=== PATIENT | male | born 1970 | race Caucasian/White ===

== ENCOUNTER 2018-04-18 15:48 | Emergency (ER) | payer OTHER ==
[~2018-04-18] VITALS: Ht 185.4 cm; Wt 72.7 kg
[2018-04-18 16:02] VITALS: Ht 185.4 cm; Wt 72.7 kg
[2018-04-18] MEDS ORDERED: LISINOPRIL10 MG PO (16:03)
[2018-04-18 16:28] LABS: BASOPHILS 0.5 % (0-2); EOSINOPHILS 1.4 % (0-7); HEMOGLOBIN 16.9 g/dL (13.5-17.5); IMMATURE GRANULOCYTES 0.2 % (0-5); LYMPHOCYTES 25.3 % (15-50); MCH 31.7 pg (26.0-34.0); MCV 88.2 fL (80.0-100.0); MEAN PLATELET VOLUME 9.5 fL (7.4-10.4); MONOCYTES 6.5 % (2-11); NEUTROPHILS 66.1 % (40-80); PLATELET COUNT 258 10x3/uL (130-400); RBC 5.33 10x6/uL (4.20-6.10); RDW 12.5 % (11.5-14.5); WBC 8.7 10x3/uL (4.8-10.8)
[2018-04-18 16:37] LABS: APTT 27.4 SECONDS (22.8-39.4); INR 1.06 (0.85-1.17); PROTIME 13.3 SECONDS (11.6-15.0)
[2018-04-18 16:39] LABS: D-DIMER-QUANTITATIVE < 0.27 ug/mLFEU (0.20-0.54)
[2018-04-18 16:44] LABS: ALBUMIN 4.7 g/dL (3.4-5.0); ALKALINE PHOSPHATASE 55 U/L (46-116); ALT (SGPT) 25 U/L (10-68); BILIRUBIN - TOTAL 0.92 mg/dL (0.2-1.3); CALC OSMOLALITY 278 mosm/kg (275-300); CALCIUM 9.8 mg/dL (8.5-10.1); CARBON DIOXIDE 26.7 mmol/L (21.0-32.0); CHLORIDE - SERUM 100 mmol/L (98-107); CREATININE - SERUM 0.9 mg/dL (0.6-1.3); GLUCOSE 116 mg/dL (74-106); POTASSIUM - SERUM 3.5 mmol/L (3.5-5.1); PROTEIN - SERUM 8.7 g/dL (6.4-8.2); SODIUM 139 mmol/L (136-145); UREA NITROGEN 12 mg/dL (7-18); eGFR NON AFRICAN AMERICAN > 90 mL/min (90-120)
[2018-04-18 16:53] LABS: CKMB 0.5 U/L (0.0-3.6); LIPASE 152 U/L (73-393); TROPONIN-I < 0.017 ng/mL (0.000-0.060)
[2018-04-18] MEDS ORDERED: PROTONIX40 MG PO (17:33)
[2018-04-18 17:48] VITALS: BP 141/81
== END 2018-04-18 17:49 | disposition home or self-care (01) ==
LOC: D.ER 15:48
PROVIDERS: Family Medicine
DX: K21.9 Gastro-esophageal reflux disease without esophagitis (principal)

== ENCOUNTER 2018-05-02 00:03 | Emergency (ER) | payer OTHER ==
[~2018-05-02] VITALS: Ht 185.4 cm; Wt 72.7 kg
[~2018-05-02 00:03] MED LIST: LISINOPRIL10 MG PO; PROTONIX40 MG PO
[2018-05-02 00:13] VITALS: Ht 185.4 cm; Wt 72.7 kg
[2018-05-02] MEDS ORDERED: COLCRYS0.6 MG PO (00:22)
[2018-05-02] MEDS ORDERED: INDOCIN25 MG PO (00:22)
[2018-05-02 01:50] VITALS: BP 133/79
== END 2018-05-02 01:50 | disposition home or self-care (01) ==
LOC: D.ER 00:03
DX: M10.072 Idiopathic gout, left ankle and foot (principal); I10 Essential (primary) hypertension; K21.9 Gastro-esophageal reflux disease without esophagitis

== ENCOUNTER → 2018-06-04 14:30 | Outpatient (CLI) | payer OTHER ==
[2018-05-02 00:13] VITALS: BMI 21.1
[~2018-06-04 14:30] MED LIST changes: +COLCRYS0.6 MG PO; +INDOCIN25 MG PO
== END | disposition home or self-care (01) ==
LOC: D.HCCARDIO 04-30 15:00
PROVIDERS: ATTEND Internal Medicine Cardiovascular Disease
DX: I20.9 Angina pectoris, unspecified (principal)

== ENCOUNTER 2018-06-15 11:56 | Outpatient (CLI) | payer OTHER ==
[~2018-06-15] VITALS: Ht 185.4 cm; Wt 72.7 kg
--- NOTE | ~2018-06-15 | HEMODYNAMI ---
PATIENT:ROBINSON SANCHES MEDICAL RECORD: [id number] : 72 LOCATION:[facility] ADMISSION DATE: 06/15/18 Generatedon:06/15/201815:11 Patient name: ROBINSON SANCHES Patient #: [id number] SSN: D OB: 1970 Date of study: 06/15/2018 Page: Of Hemodynamic Procedure Report Patient Data Patient Demographics Procedure consent was obtained First Name: ROBINSON Gender: Male Last Name: VERÓNICA : 1970 Middle Initial: BRENNA Age: 47 year(s) Patient #: [id number] Race: Unknown Additional ID: [id number] Contact details Address: [address] [place] [address] State: [place] City: [facility] Zip code: [address] Past Medical History Allergies Allergen Reaction Date Comments Reported Other allergy 06/15/2018 RED MEAT Admission Admission Data Admission Date: 06/15/2018 Admission Time: 11:56 Height (in.): 73 BSA: 1.96 (m2) Height (cm.): 185.42 BMI: 21.15 (kg/m2) Weight (lbs.): 160.32 Weight (kg.): 72.72 Lab Results Lab Result Date: 06/15/2018 Lab Result Time: 0:00 Biochemistry Name Units Result Min Max BUN mg/dl 8 --(*---)-- 7 18 Creatinine mg/dl 0.9 --(-*--)-- 0.6 1.3 CBC Name Units Result Min Max Hematocrit % 43.8 --(*---)-- 42 54 Hemoglobin g/dl 15.7 --(--*-)-- 13.5 17.5 Procedure Procedure Types Cath Procedure Diagnostic Procedure [facility] w/Coronaries Sedation Charges Moderate Sedation up to 15 minutes Procedure Description Procedure Date Procedure Date: 06/15/2018 Procedure Start Time: 14:59 Procedure End Time: 15:09 Procedure Staff Name Function Reginaldo Berry MD Performing Physician Mary Damon RT Monitor Keisha Serrato RN Nurse Diane Luna RT Scrub Procedure Data Cath Procedure Fluoroscopy Diagnostic fluoroscopy Total fluoroscopy Time: 2.3 time: 2.3 min min Diagnostic fluoroscopy Total fluoroscopy dose: 314 dose: 314 mGy mGy Contrast Material Contrast Material Type Amount (ml) Isovue 300 62 Entry Location Entry Primary Successful Side Size Upsize Upsize Entry Closure Drew ccessful Closure Location (Fr) 1 (Fr) 2 (Fr) Remarks Device Remarks Radial Right 6 Fr Mechanical artery Short Compression Estimated blood loss: 5 ml Diagnostic catheters Device Type Used For End Catheter Placement DIAGNOSTIC Jerrell 110cm Procedure 5Fr catheter ([id number]) Procedure Complications No complications Procedure Medications Medication Administration Route Dosage Oxygen etCO2 Nasal cannula 2 l/min Heparin Flush Bag added to field 2 bags (1000units/500ml NS) 0.9% NaCl I.V. 100 ml/hr Lidocaine 2% added to field 20 Radial Cocktail added to field 1 syringe (Verapomil 2mg/Nitro 400mcg/Heparin 1500units) Versed I.V. 2 mg Fentanyl I.V. 50 mcg Versed I.V. 2 mg Fentanyl I.V. 50 mcg Versed I.V. 2 mg Fentanyl I.V. 50 mcg Hemodynamics Rest BSA: 1.96 (m2) HGB: 15.7 (g/dl) O2 Consumption: Estimated: 245.41 (ml/min) O2 Co nsumption indexed: Estimated:125.21 (ml/min/m) Heart Rate: 82 (bpm) Pressure Samples Time Site Value (mmHg) Purpose Heart Use Rate(bpm) 15:02 LV 107/-15,2 EDP 125 15:02 LV 165/-28,1 Snapshot 105 15:03 AO 84/51(61) Pullback 104 15:03 LV 123/-17,-2 Pullback 104 Gradients Valve Time Site 1 Site 2 Mean SEP/DFP Peak To Heart Use (mmHg) (sec/min) Peak Rate (mmHg) (bpm) Aortic 15:03 LV AO 15 22 39 104 123/-17,-2 84/51(61) Calculations Valve P-P Mean Valve Index Valve Source Name Gradient Area Flow (cm2) Aortic 39 15 39 15 Snapshots Pre Cath Intra NCS Post Cath Vital Signs Time Heart Resp SPO2 etCO2 NIBP (mmHg) Rhythm Pain Sedation Rate (ipm) (%) (mmHg) Status Level (bpm) 14:42:35 101 16 100 0 131/90(104) NSR 0 (11) 10(A) , No pain 14:46:49 81 15 99 29.7 125/71(95) NSR 0 (11) 10(A) , No pain 14:50:59 85 11 98 23 111/72(92) NSR 0 (11) 10(A) , No pain 14:55:04 83 16 96 35.7 117/78(91) NSR 0 (11) 10(A) , No pain 14:59:16 88 14 96 38.7 118/70(84) NSR 0 (11) 10(A) , No pain 15:03:28 109 13 96 35.7 102/57(80) NSR 0 (11) 9(A) , No pain 15:07:36 105 13 96 40.9 104/59(77) NSR 0 (11) 10(A) , No pain Medications Time Medication Route Dose Verified Delivered Reason Notes E ffectiveness by by 14:39:00 Oxygen etCO2 2 l/min Buffie Reginaldo Per Nasal Ama Berry MD physician cannula 14:39:09 Heparin Flush added 2 bags Buffie Reginaldo used for Bag to Ama Berry MD procedure (1000units/500ml field NS) 14:39:18 0.9% NaCl I.V. 100 Buffie Reginaldo Per ml/hr Ama Berry MD physician 14:39:26 Lidocaine 2% added 20ml Buffie Reginaldo for local to vial Ama Berry MD anesthetic field 14:39:48 Radial Cocktail added 1 Buffie Reginaldo used for (Verapomil to syringe Ama Berry MD procedure 2mg/Nitro field 400mcg/Heparin 1500units) 14:49:09 Versed I.V. 2 mg Buffie Buffie for Serrato RN Serrato RN sedation 14:49:16 Fentanyl I.V. 50 mcg Buffie Buffie for Serrato RN Serrato RN sedation 14:54:29 Versed I.V. 2 mg Buffie Buffie for Serrato RN Serrato RN sedation 14:54:32 Fentanyl I.V. 50 mcg Buffie Buffie for Serrato RN Serrato RN sedation 15:02:20 Versed I.V. 2 mg Buffie Buffie for Serrato RN Serrato RN sedation 15:02:27 Fentanyl I.V. 50 mcg Keisha Valdes for Ama Serrato RN sedation Procedure Log Time Note 14:34:01 Keisha Serrato RN sent for patient. Start room use. 14:34:02 Time tracking: Regular hours (M-F 7:00 - 5:00) 14:34:06 Plan of Care:Hemodynamics will remain stable., Cardiac rhythm will remain stable., Comfort level will be maintained., Respiratory function will remain adequate., Patient/ family verbilizes understanding of procedure., Procedure tolerated without complication., Recovers from procedure without complications.. 14:36:37 Signed procedure consent form obtained from patient. 14:36:44 Patient received from Pre/Post Procedure Room to CCL 1 Alert and oriented. Tansferred to table in Supine position. 14:36:45 Warm blankets applied, and ree hugger turned on for patient comfort. 14:36:46 Correct patient and procedure confirmed by team. 14:36:46 ECG and BP/O2 sat monitors applied to patient. 14:39:00 Oxygen 2 l/min etCO2 Nasal cannula was administered by Reginaldo Berry MD; Per physician; 14:39:09 Heparin Flush Bag (1000units/500ml NS) 2 bags added to field was administered by Reginaldo Berry MD; used for procedure; 14:39:18 0.9% NaCl 100 ml/hr I.V. was administered by Reginaldo Berry MD; Per physician; 14:39:26 Lidocaine 2% 20ml vial added to field was administered by Reginaldo Berry MD; for local anesthetic; 14:39:48 Radial Cocktail (Verapomil 2mg/Nitro 400mcg/Heparin 1500units) 1 syringe added to field was administered by Reginaldo Berry MD; used for procedure; 14:41:37 Vital chart was started 14:45:08 Baseline sample Acquired. 14:45:12 Rhythm: sinus rhythm 14:45:13 Full Disclosure recording started 14:45:14 Pre-procedure instructions explained to patient. 14:45:14 Pre-op teaching completed and patient verbalized understanding. 14:45:15 Family in patients room. 14:45:16 Patient NPO since Midnight. 14:47:24 H&P Date Dictated: 06/11/2018 Within 30 days and on chart., H&P Addendum completed by physician on day of procedure. (MUST COMPLETE FOR ALL OUTPATIENTS). 14:47:42 Patient allergic to Other allergyRED MEAT 14:47:45 Is patient on blood thinner?No 14:47:46 Patient diabetic? No. 14:47:50 Previous problem with sedation/anesthesia? No ? 14:47:51 Snore? Yes 14:47:52 Sleep apnea? No 14:47:53 Deviated septum? N/A 14:47:54 Opens mouth fully? Yes 14:47:55 Sticks out tongue? Yes 14:47:58 Airway obstruction? No ? 14:47:59 Dentures? No ? 14:48:01 Modified Vikram's test Ulnar < 7 seconds 14:48:03 Patient pain scale 0/10 ?. 14:48:06 IV patent on arrival in left hand with 0.9% NaCl at [facility]. 14:48:42 Lab Result : Creatinine 0.9 mg/dl 14:48:42 Lab Result : BUN 8 mg/dl 14:48:42 Lab Result : Hemoglobin 15.7 g/dl 14:48:42 Lab Result : Hematocrit 43.8 % 14:48:45 Lab results completed and on chart. 14:48:48 Right Radial & Right Groin area was prepped with chlora-prep and draped in sterile fashion 14:48:49 Alarms reviewed by R. N. 14:48:49 Sharps counted by scrub and verified by R.N. 14:48:51 --------ALL STOP TIME OUT------ 14:48:51 Final Timeout: patient, procedure, and site verified with staff and physician. All members of the team are in agreement. 14:48:52 Right Radial & Right Groin site verified by team. 14:48:55 Maximum allowable Isovue 300 dose 300ml. Physician notified. (300ml for normal creatinines. For patients with creatinine of 1.7 or higher multiply weight(kg) x 5 divided by creatinine.) 14:48:59 Fire Safety Assessment: A--An alcohol-based skin anteseptic being used preoperatively., C--Open oxygen or nitrous oxide is being used., D--An ESU, laser, or fiber-optic light is being used. 14:49:01 Physical assessment completed. ASA score P 2 - A patient with mild systemic disease as per Reginaldo Berry MD. 14:49:05 Sedation plan: IV Moderate Sedation Medication:Versed, Fentanyl 14:49:09 Versed 2 mg I.V. was administered by Keisha Serrato RN; for sedation; 14:49:16 Fentanyl 50 mcg I.V. was administered by Keisha Serrato RN; for sedation; 14:51:02 Use device set Radial Dx or PCI 14:51:03 ACIST Syringe (97289) opened to sterile field. 14:51:05 Bag Decanter (2002S) opened to sterile field. 14:51:07 ACIST Hand Control (29523) opened to sterile field. 14:51:07 ACIST Manifold (38665) opened to sterile field. 14:51:08 Tegaderm 4 x 4 (1626W) opened to sterile field. 14:51:11 Medline Cath Pack ([id number]) opened to sterile field. 14:51:12 DIAGNOSTIC WIRE .035 260cm J wire (165737) opened to sterile field. 14:51:12 MBrace Wrist Support ([id number]) opened to sterile field. 14:51:13 SHEATH 6FR Slender (80-1580) opened to sterile field. 14:51:15 NEEDLE Cook 21G 4cm Radial ([id number]) opened to sterile field. 14:51:26 Patient Height : 73 inches 14:51:37 Patient Weight : 160.32 lbs 14:54:29 Versed 2 mg I.V. was administered by Keisha Serrato RN; for sedation; 14:54:32 Fentanyl 50 mcg I.V. was administered by Keisha Serrato RN; for sedation; 14:58:21 Procedure started. 14:58:24 Zero performed for pressure channel P1 14:58:51 Zero performed for pressure channel P1 14:59:03 Local anesthetic to right radial artery with Lidocaine 2% by Reginaldo Berry MD.INITIAL ACCESS ONLY 15:00:29 A 6 Fr Short sheath was inserted into the Right Radial artery 15:01:08 A DIAGNOSTIC Jerrell 110cm 5Fr catheter (281932) was advanced over the wire and used for Procedure. 15:01:32 LV gram done using SMITH 15:01:35 Injector settings: Ml/sec: 7, Volume: 15, 15:02:20 Versed 2 mg I.V. was administered by Keisha Serrato RN; for sedation; 15:02:27 Fentanyl 50 mcg I.V. was administered by Keisha Serrato RN; for sedation; 15:02:44 LV hemodynamics recorded. 15:02:55 EF : 55 % 15:03:51 RCA angiography performed. 15:04:54 LCA angiography performed. 15:06:01 Catheter removed. 15:06:23 TR BAND Standard ([id number]) opened to sterile field. 15:06:31 Procedure ended.(Physican Out) 15::59 Fluoroscopy time 02.30 minutes. 15:07:04 Fluoroscopy dose: 314 mGy 15:07:04 Flurop Dose total: 314 15:07:07 Contrast amount:Isovue 300 62ml. 15:07:15 Sheath removed intact; hemostasis achieved with Mechanical Compression to the Right Radial artery. 15:07:22 TR band inflated with 11cc of air. 15:07:38 Post-procedure physical assessment completed. ASA score P 2 - A patient with mild systemic disease as per Reginaldo Berry MD. 15:07:41 Post procedure rhythm: sinus tachycardia 15:07:44 Estimated blood loss: 5 ml 15:07:46 Post procedure instruction explained to patient.Patient verbalizes understanding. 15:07:46 Patient needs reinforcement of post procedure teaching. 15:08:05 Procedure type changed to Cath procedure, Diagnostic procedure, LHC, LHC w/Coronaries, Sedation Charges, Moderate Sedation up to 15 minutes 15:08:48 Procedure and supply charges have been captured, reviewed, submitted and are correct. 15:08:51 Procedure Complication : No complications 15:09:48 Vital chart was stopped 15:09:49 See physician's report for complete and final results. 15:09:50 Report given to Pre/Post Procedure Room. 15:09:52 Patient transfered to Pre/Post Procedure Room with Bed. 15:09:55 Procedure ended. 15:09:55 Full Disclosure recording stopped 15::59 End room use (Document Last) Device Usage Item Name Manufacture Quantity Catalog Hospital Part Current Minimal Lot# / Number Charge Number Stock Stock Serial# Code ACIST Acist 1 24763 431016 247123 307987 20 Syringe fluIT Biosystems (00261) joblocal Inc Bag Microtek 1 577362 14905 076474 5 DecTAGSYS [employer] () ACIST Hand Acist 1 31101 300616 053593 055404 5 Control Medical (10233) Systems Inc ACIST Acist 1 62552 553877 460294 777947 5 Manifold Medical (96270) Systems Inc Tegaderm 4 3M 1 1626W 674514 749969 673122 5 x 4 (1626W) Medline Medline 1 [id number] 364327 35558 683499 5 Cath Pack ([id number]) DIAGNOSTIC St Jh 1 316629 768275 261068 057087 30 WIRE .035 260cm J wire (968594) MBrace Advanced 1 140-0250-00 321149 02536 574481 5 Wrist Vascular Support Dynamics ([id number]) SHEATH 6FR Terumo 1 [id number] 545256 441593 407821 5 Slender (80-1060) NEEDLE Cook [facility] 1 [id number] 912334 261518 997123 5 21G 4cm Radial (Y39274) DIAGNOSTIC Terumo 1 40-5898 005249 842437 382407 5 Jerrell 110cm 5Fr catheter (442073) TR BAND Terumo 1 [id number] 744598 739925 029373 40 Standard ([id number]) Signature Audit Gilbert Stage Time Signature Unsigned Intra-Procedure 06/15/2018 Mary Damon 3:10:56 PM RT(R) Signatures Monitor : Mary Damon Signature : RT Date : Time : [facility] [address] [place] [address]
[2018-06-15 12:20] VITALS: BP 135/87; Ht 185.4 cm; Wt 72.7 kg
[2018-06-15 12:23] LABS: BASOPHILS 0.7 % (0-2); EOSINOPHILS 4.4 % (0-7); HEMATOCRIT 43.8 % (42.0-54.0); HEMOGLOBIN 15.7 g/dL (13.5-17.5); IMMATURE GRANULOCYTES 0.2 % (0-5); LYMPHOCYTES 31.4 % (15-50); MCH 30.6 pg (26.0-34.0); MCHC 35.8 g/dL (31.0-37.0); MCV 85.4 fL (80.0-100.0); MEAN PLATELET VOLUME 9.4 fL (7.4-10.4); MONOCYTES 5.3 % (2-11); PLATELET COUNT 269 10x3/uL (130-400); RBC 5.13 10x6/uL (4.20-6.10); WBC 6.1 10x3/uL (4.8-10.8)
[2018-06-15 12:37] LABS: CALC OSMOLALITY 277 mosm/kg (275-300); CALCIUM 9.6 mg/dL (8.5-10.1); CARBON DIOXIDE 28.8 mmol/L (21.0-32.0); CHLORIDE - SERUM 101 mmol/L (98-107); CREATININE - SERUM 0.9 mg/dL (0.6-1.3); GLUCOSE 111 mg/dL (74-106); POTASSIUM - SERUM 3.3 mmol/L (3.5-5.1); SODIUM 140 mmol/L (136-145); UREA NITROGEN 8 mg/dL (7-18); eGFR NON AFRICAN AMERICAN > 90 mL/min (90-120)
--- NOTE | 2018-06-15 15:26 | NUR ---
RECIEVED TO ROOM VIA STRETCHER FROM JOINER APPRENTICE WITH TR BAND TO R/WRIST CDI NO BLEEDING OR HEMATOMA NOTED. HR 97 BP 109/74 CHEST PAIN IS DENIED
--- NOTE | 2018-06-15 15:38 | NUR ---
REPOSITIONED TO HOB UP 30 FOR COMFORT. SANDWICH AND SODA TO BEDSIDE TR BAND REMAINS CDI WITH NO BLEEDING OR HEMATOMA NOTED. HR 115 BP 19/74 CHEST PAIN IS DENIED
--- NOTE | 2018-06-15 16:00 | NUR ---
PT SITTING UP, TOLERATED SANDWICH AND DRINK W/O NAUSEA. TR BAND AND IMMOBILIZER IN PLACE, DRESSING REMAINS CDI NO BLEEDING OR HEMATOMA NOTED. CAP REFILL BRISK. R ARM PINK AND WARM. CALL LIGHT IN REACH, AT BEDSIDE.
--- NOTE | 2018-06-15 16:13 | NUR ---
PT DOING WELL, SITTING UP VISITING W . TOLERATED SANDWICH AND DRINK W/O NAUSEA. TR BAND IN PLACE, DRESSING CDI NO BLEEDING OR HEMATOMA NOTED. VSS, CALL LIGHT IN REACH
--- NOTE | 2018-06-15 16:29 | NUR ---
PT SITTING UP TALKING W . TR BAND IN PLACE, DRESSING REMAINS CDI NO BLEEDING OR HEMATOMA NOTED. 4CC AIR REMOVED FROM TR BAND NO BLEEDING OR SWELLING NOTED. CALL LIGHT IN REACH
--- NOTE | 2018-06-15 17:03 | NUR ---
DISCHARGE INSTRUCTIONS REVIEWED W PT AND , BOTH VERBALIZED UNDERSTANDING. IV REMOVED W CATH INTACT, O2 AND MONITORS REMOVED. PT UP TO DRESS FOR DISCHARGE
--- NOTE | 2018-06-15 17:20 | NUR ---
REMAINING AIR AND TR BAND REMOVED. NO BLEEDING OR SWELLING NOTED. 2X2 AND TEGADERM APPLIED. IMMOBILIZER RE APPLIED. PT DISCHARGED VIA WC TO PRIVATE VEHICLE WITH ALL BELONGINGS.
== END 2018-06-15 17:25 | disposition home or self-care (01) ==
LOC: D.CATH 11:56
PROVIDERS: ATTEND Internal Medicine Cardiovascular Disease
DX: I20.9 Angina pectoris, unspecified (principal); Z01.812 Encounter for preprocedural laboratory examination